=== PATIENT | female | born 1985 | race Caucasian/White ===

== ENCOUNTER → 2024-10-29 | Outpatient (CLI) | payer SELFPAY ==
--- NOTE | 2024-10-29 16:35 | BI_ITS ---
EXAM: SCRN MAMM (CAD)W/ONOFRE BILAT DATE: 10/29/2024 CLINICAL HISTORY: F, Age 39 y/o , SCREENING TECHNIQUE: SCRN MAMM (CAD)W/ONOFRE BILAT COMPARISON: None available FINDINGS: TISSUE DENSITY: The breast tissue is heterogeneously dense, which may obscure small masses. Bilateral Breast Mammographic Findings: Right breast: There is an asymmetry in the inner right breast posterior depth on the CC view. There is an asymmetry with associated questionable architectural distortion in the central right breast posterior depth on the right MLO view. Left breast: There is a mass versus focal asymmetry in the lower outer left breast anterior depth. BI/SCRN MAMM (CAD)W/ONOFRE BILAT IMPRESSION: Additional diagnostic imaging is recommended of bilateral breasts with bilatera l diagnostic mammography and ultrasound. OVERALL FINAL ASSESSMENT BI-RADS 0: INCOMPLETE - NEED ADDITIONAL IMAGING EVALUATION. RECOMMENDATION: Additional Views /call backs A letter with findings and recommendations will be mailed to the patient. Reading Location: [id number]
== END | disposition home or self-care (01) ==
PROVIDERS: PCP Nurse Practitioner Primary Care
DX: Z12.31 Encounter for screening mammogram for malignant neoplasm of breast (principal); Z80.3 Family history of malignant neoplasm of breast
CPT/HCPCS: 77063; 77067

== ENCOUNTER → 2024-11-18 | Outpatient (CLI) | payer SELFPAY ==
--- NOTE | 2024-11-18 09:28 | BI_ITS ---
EXAM: DIAG MAMM W/CAD, BILAT 11/18/2024 CLINICAL HISTORY: F, Age 39 y/o , ABN STAR TECHNIQUE: DIAG MAMM W/CAD, BILAT. Compression spot views of both breasts in the mediolateral oblique and craniocaudad projections were obtained. COMPARISON: Prior exam(s) dated October 29, 2024.. FINDINGS: TISSUE DENSITY: The breasts are extremely dense, which lowers the sensitivity of mammography. Bilateral Breast Mammographic Findings: No significant masses, calcifications or other abnormalities are identified. BI/DIAG MAMM W/CAD, BILAT IMPRESSION: Negative diagnostic mammogram. OVERALL FINAL ASSESSMENT BI-RADS 2: BENIGN RECOMMENDATION: Routine annual follow-up in 1 Year A letter with findings and recommendations will be mailed to the patient. Reading Location: [place] [id number]
== END | disposition home or self-care (01) ==
PROVIDERS: PCP Nurse Practitioner Primary Care
DX: R92.8 Other abnormal and inconclusive findings on diagnostic imaging of breast (principal)
CPT/HCPCS: 77066